=== PATIENT | male | born 1990 | race Caucasian/White ===

== ENCOUNTER 2019-04-20 06:12 | Emergency (ER) | payer MEDICAID, BC ==
[~2019-04-20] VITALS: Ht 172.7 cm; Wt 54.4 kg
[2019-04-20] MEDS ORDERED: NEOMY/BACITR/POLYMYXIN OINT PACKET. TP ONE (06:45)
--- NOTE | 2019-04-20 06:52 | PHYS DOC ---
Past Medical History Past Medical History: Other Additional Past Medical Histor: TACHYCARDIA, ESSENTIAL TREMORS (ADELAIDA VALENCIA DO) Past Surgical History: Cholecystectomy Additional Past Surgical Histo: 3 KNEE SURGERIES ON EACH KNEE (ADELAIDA VALENCIA DO) Additional Information: Nonsmoker Alcohol Use: Rarely Drug Use: None (ADELAIDA VALENCIA DO) Adult General Chief Complaint Chief Complaint: FOOT INJURY PAIN HPI HPI 29-year-old male presents with report of right great toe pain. Patient reports he had dropped a "stack of totes "on it at approximately 0400. Patient reports significant amount of pain with ambulation. Denies fever or chills. Reports some bleeding from underneath the nail. Reports last tetanus shot greater than 5 years ago. (ADELAIDA VALENCIA DO) Review of Systems Review of Systems Constitutional: Denies fever or chills Musculoskeletal: Reports right great toe pain and bleeding underneath the nail Integument: Denies rash; reports bleeding underneath the right great toenail Neurologic: Denies headache, focal weakness or sensory changes Complete systems were reviewed and found to be within normal limits, except as documented in this note. (ADELAIDA VALENCIA DO) Current Medications Current Medications Current Medications Medications (Trade) Dose Ordered Sig/Burak Start Time Stop Time Status Last Admin Dose Admin Diphtheria/ Tetanus/Acell Pertussis (Boostrix) 0.5 ml ONCE ONCE 04/20/19 07:00 04/20/19 07:01 DC 04/20/19 07:28 0.5 ML Neomycin/ Polymyxin/ Bacitracin (Triple Antibiotic Ointment) 1 pkt 1X ONCE 04/20/19 06:45 04/20/19 06:46 DC 04/20/19 07:17 1 PKT (OZ HERNANDEZ DO) Allergies Allergies Allergies Coded Allergies Type Severity Reaction Last Updated Verified No Known Drug Allergies 05/24/16 No (OZ HERNANDEZ DO) Physical Exam Physical Exam Constitutional: Well developed, well nourished, no acute distress, non-toxic appearance HENT: Normocephalic, atraumatic Eyes: Conjunctiva normal, no discharge Neck: Normal range of motion, no tenderness, supple Cardiovascular: Right great toe CR < 2 sec, right DP and PT +2 Lungs & Thorax: No respiratory distress Skin: Warm, dry, small amount of bleeding distal to right toenail, no subungual hematoma noted Extremities: No deformity, ROM intact Neurologic: Alert and oriented X 3, no focal deficits noted Psychologic: Affect normal, judgement normal (ADELAIDA VALENCIA DO) Current Patient Data Vital Signs Vital Signs Date Time Temp Pulse Resp B/P (MAP) Pulse Ox O2 Delivery O2 Flow Rate FiO2 04/20/19 06:25 98.2 75 10 110/71 (84) 99 Room Air 98.2 (OZ HERNANDEZ DO) EKG EKG [] (ADELAIDA VALENCIA DO) Radiology/Procedures Radiology/Procedures [] (ADELAIDA VALENCIA DO) Course & Med Decision Making Course & Med Decision Making Patient presents with report of blunt trauma to right great toe with some bleeding to distal nail bed. Pain meds offered which patient declined. Wound cleaned and dressed with antibiotic ointment. X-rays ordered and pending. Sign out given to Dr. Hernandez for further evaluation and final disposition. Discussed current findings and plan with patient, who acknowledges understanding and agreement. (ADELAIDA VALENCIA DO) Course & Med Decision Making xray of right foot and great toe shown no fracture or dislocation. will discharge him home. (OZ HERNANDEZ DO) Dragon Disclaimer Dragon Disclaimer This electronic medical record was generated, in whole or in part, using a voice recognition dictation system. (ADELAIDA VALENCIA DO) Departure Departure Impression: Primary Impression: Pain of right great toe Additional Impression: Contusion of great toe of right foot Disposition: HOME, SELF-CARE Condition: STABLE Patient Instructions: Contusion Problem Qualifiers ADELAIDA VALENCIA DO Apr 20, 2019 06:52 OZ HERNANDEZ DO Apr 20, 2019 07:51
[2019-04-20] MEDS ORDERED: DIPHTH,PERTUSS(ACELL),TET TOX 0.5 ML DISP.SYRIN. VAX IM ONE (07:00)
[2019-04-20 08:00] VITALS: BP 107/70
--- NOTE | 2019-04-20 08:09 | RAD ---
Three-view right first toe radiographs 04/20/2019 CLINICAL HISTORY: Right first toe pain. Blunt trauma. An AP digital radiograph of the right foot was obtained. Oblique and lateral digital radiographs of the right first toe were obtained. No fracture or dislocation of the right first toe is seen. No radiopaque foreign body is noted. Mild degenerative changes are seen involving the first MTP joint. IMPRESSION: No fracture or dislocation of the right first toe is seen. Electronically signed by: Kurt Lopez MD (04/20/2019 8:07 AM) [facility]
== END 2019-04-20 08:04 | disposition home or self-care (01) ==
LOC: ER 06:12
DX: S90.111A Contusion of right great toe without damage to nail, initial encounter (principal); Z90.49 Acquired absence of other specified parts of digestive tract; W20.8XXA Other cause of strike by thrown, projected or falling object, initial encounter; Y93.89 Activity, other specified; Y92.89 Other specified places as the place of occurrence of the external cause; Y99.8 Other external cause status
CPT/HCPCS: 73660; 90471; 90715; 99284

== ENCOUNTER 2020-02-22 17:49 | Emergency (ER) | payer BC, MEDICAID ==
[~2020-02-22] VITALS: Ht 172.7 cm; Wt 55.0 kg
--- NOTE | 2020-02-22 18:24 | PHYS DOC ---
Past Medical History Past Medical History: Other Additional Past Medical Histor: TACHYCARDIA, ESSENTIAL TREMORS Past Surgical History: Cholecystectomy Additional Past Surgical Histo: 3 KNEE SURGERIES ON EACH KNEE Smoking Status: Never Smoker Alcohol Use: Rarely Drug Use: None General Adult EDM: Chief Complaint: DIARRHEA HPI: HPI: Patient is a 29 year [id number]-lxc male with no past medical history not allergic to any medication he is a tobacco chewer occasional drinker presents with a 3-day history of headache runny nose fatigue vomiting generalized weakness sore throat and diarrhea. Last night patient was sent home from work due to vomiting. Patient also has a cough without sputum production. Diarrhea and vomiting without blood. At the time of my exam patient is afebrile oxygen saturation 98% on room air. Patient's heart rate 110. He tells me he has a history of sinus tachycardia with rates in the 100s to 120s. Based upon history of present illness and physical exam advised the patient that he is highly likely to be positive for vega virus. Patient states he works at [employer] we have seen multiple patients from facility with similar complaints that have tested positive. Patient will be discharged home with COVID instructions. He will be given a prescription for Zithromax and Zofran. Patient advised to take Tylenol Motrin as needed for pain or fever. Patient advised to stay well-hydrated. Review of Systems: Review of Systems: Constitutional: Denies fever or chills. [] Eyes: Denies change in visual acuity. [] HENT: Denies nasal congestion or sore throat. [] Respiratory: Positive cough Cardiovascular: Denies chest pain or edema. [] GI: Denies abdominal pain, nausea, vomiting, bloody stools or diarrhea. [] : Denies dysuria. [] Musculoskeletal: Denies back pain or joint pain. [] Integument: Denies rash. [] Neurologic: Denies headache, focal weakness or sensory changes. [] Endocrine: Denies polyuria or polydipsia. [] Lymphatic: Denies swollen glands. [] Psychiatric: Denies depression or anxiety. [] Heart Score: Risk Factors: Risk Factors: DM, Current or recent (<one month) smoker, HTN, HLP, family history of CAD, obesity. Risk Scores: Score 0 - 3: 2.5% MACE over next 6 weeks - Discharge Home Score 4 - 6: 20.3% MACE over next 6 weeks - Admit for Clinical Observation Score 7 - 10: 72.7% MACE over next 6 weeks - Early Invasive Strategies Allergies: Allergies: Allergies Coded Allergies Type Severity Reaction Last Updated Verified No Known Drug Allergies 05/24/16 No Physical Exam: PE: Constitutional: Well developed, well nourished, no acute distress, HENT: Normocephalic, atraumatic, bilateral external ears normal, oropharynx moist, no oral exudates, nose normal. Clear nasal drainage [] Eyes: EOMI, conjunctiva normal, no discharge. [] Neck: Normal range of motion, no tenderness, supple, no stridor. [] Cardiovascular: Tachycardia Lungs & Thorax: No respiratory distress Abdomen: Bowel sounds normal, soft, no tenderness, no masses, no pulsatile masses. [] Skin: Warm, dry, no erythema, no rash. [] Back: No tenderness, no CVA tenderness. [] Extremities: No tenderness, no cyanosis, no clubbing, ROM intact, no edema. [] Neurologic: Alert and oriented X 3, normal motor function, normal sensory function, no focal deficits noted. [] Psychologic: Affect normal, judgement normal, mood normal. [] EKG: EKG: [] Radiology/Procedures: Radiology/Procedures: [] Course & Med Decision Making: Course & Med Decision Making Pertinent Labs and Imaging studies reviewed. (See chart for details) [] Dragon Disclaimer: Dragon Disclaimer: This electronic medical record was generated, in whole or in part, using a voice recognition dictation system. Departure Departure Impression: Primary Impression: Diarrhea Additional Impressions: Viral syndrome Person under investigation for COVID-19 Disposition: HOME, SELF-CARE Condition: STABLE Referrals: JOSE MARTIN ARCOS (PCP) Patient Instructions: Diarrhea, Viral Syndrome Additional Instructions: You have been tested for or diagnosed with COVID-19. It is an infection caused by a new type of coronavirus. COVID-19 will cause cold-like or mild flu symptoms in most. It can cause more severe symptoms like problems breathing in some. There is no treatment for COVID-19. The body will clear the infection over time. Self-care will help to ease discomfort. Steps to Take: Self-Care Rest as needed. Healthy habits may help you feel better. Steps include: Choose healthy foods including fruits and vegetables. Drink water throughout the day. Get plenty of sleep each night. If you smoke, try to quit. It may ease breathing. Avoid alcohol. Keep Others Healthy The virus can spread to others. Droplets are released every time you sneeze or cough. The droplets can get into the mouth, nose, or eyes of people near you and lead to infection. To lower the chances of spreading COVID-19 to others: Stay at home until your doctor has said it is safe to leave. If you tested positive this will mean staying isolated until both of the following are true: At least 7 days have passed since the start of illness. You are free of fever for at least 72 hours without the use of medicine. During this time: - Avoid public areas, events, or transportation. Do not return to work or school until your doctor has said it is safe to do so. - Call ahead if you need to go to a medical center. Let them know you may have COVID-19. It will help them guide you where to go. They may also ask you to wear a facemask when you come to the office. - If you call for emergency medical services, let them know you may have COVID- 19. While at home: - Try to avoid close contact with others. Stay about 6 feet away. - If possible, spend most of your time in a separate room from others. - Use a face mask if you will be in close contact with others such as sharing a room or vehicle. - Have someone wipe down common surfaces in the home. Use household plastic top assembler every day on areas like doorknobs, counters, or sinks. - Cough or sneeze into a tissue. Throw the tissue away right after use. If a tissue is not available, cough or sneeze into your elbow. - Wash your hands often. Wash them after sneezing or coughing. Use soap and water and wash for at least 20 seconds. Alcohol based hand condenser cleaner can be used if soap and water is not available. - Do not prepare food for others. Avoid sharing personal items like forks, spoons, or toothbrushes. - Avoid close contact with pets while you are sick. There is no evidence of the virus passing to pets. This is a safety step until more is known about this virus. Isolation can be frustrating. Social interaction can help. Keep in touch with friends and family through phone and tech options. You can still interact with others in your home, just keep a safe distance of about 6 feet. Follow-up: Your doctors office will check in with you to see if there are any changes in your health. You may be asked to keep track of symptoms to share with them. They will also let you know when you are clear to be in public again. Problems to Look Out For: Contact your doctor if your recovery is not going as you expect. Get emergency care if you have problems such as: - Trouble breathing - Nonstop chest pain or pressure - Changes in awareness, confusion, or problems waking - Lips or face have bluish color - Worsening of symptoms If you think you have an emergency, call for emergency medical services right away. As taken from [facility] Azithromycin (ZITHROMAX) 250 Mg Tablet 1 PKG PO UD, #6 TAB Prov: CHARITY TRAYLOR I DO 02/22/20 Ondansetron Hcl (ZOFRAN) 4 Mg Tablet 1 TAB PO Q6HRS, #20 TAB Prov: CHARITY TRAYLOR I DO 02/22/20 Justicifation of Admission Dx: Justifications for Admission: Justification of Admission Dx: N/A CHARITY TRAYLOR I DO Feb 22, 2020 18:24
[2020-02-22 18:36] VITALS: BP 110/61
[2020-02-22] MEDS ORDERED: AZIT250T PO (18:40)
[2020-02-22] MEDS ORDERED: ONDA4TAB7 PO (18:40)
[2020-02-22] MEDS ORDERED: ACETAMINOPHEN 500 MG TABLET PO ONE (19:00)
== END 2020-02-22 18:56 ==
LOC: ER 17:49
DX: A08.4 Viral intestinal infection, unspecified (principal); Z20.828 Contact with and (suspected) exposure to other viral communicable diseases; B34.9 Viral infection, unspecified; R19.7 Diarrhea, unspecified; R11.2 Nausea with vomiting, unspecified; R05 Cough; Z90.49 Acquired absence of other specified parts of digestive tract; Z98.890 Other specified postprocedural states
CPT/HCPCS: 99283; U0003